=== PATIENT | male | born 1950 | race Caucasian/White ===

== ENCOUNTER 2019-06-20 06:07 | Day surgery (SDC) | payer BC ==
--- NOTE | 2019-06-17 15:34 | EKG ---
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
--- NOTE | 2019-06-17 15:50 | RAD REPORT ---
EXAM DESCRIPTION: Aicha Tavarez (2 Views)06/17/2019 3:37 pm CLINICAL HISTORY: Hypertension/preop for cardiac catheterization COMPARISON: January 2019 FINDINGS: The lungs appear clear of acute infiltrate. The heart is normal size IMPRESSION: No acute abnormalities displayed
[2019-06-17 16:33] LABS: Absolute Lymphocytes (CBC) 1.4 K/uL (0.7-4.9); Hematocrit 44.9 % (39.6-49.0); Lymphocytes % 22.1 % (15.3-44.8); RBC Red Blood Cell Count 5.04 M/uL (4.33-5.43)
[2019-06-17 16:37] LABS: Protime INR 1.03
[2019-06-17 16:44] LABS: Potassium 3.6 mmol/L (3.5-5.1)
[2019-06-20] MEDS ORDERED: HEPA 1000U/500MLS 1,000 UNIT/500 ML BAG IV ONE (06:43)
[2019-06-20] MEDS ORDERED: ATROPINE SULF 1 MG/10 ML SYR IV ONE (06:44)
[2019-06-20] MEDS ORDERED: LIDOCAINE 1% MPF 30 ML VIAL ONE (06:44)
[2019-06-20] MEDS ORDERED: NITROGLYCERIN 100 MCG/ML SYR (for cath lab use only) IV ONE (06:44)
[2019-06-20] MEDS ORDERED: FENTANYL CITR 100 MCG/2 ML ONE (06:44)
[2019-06-20] MEDS ORDERED: MIDAZOLAM HCL 2 MG/2 ML INJ ONE ×2 (06:44→07:24)
[2019-06-20] MEDS ORDERED: NITROGLYCERIN/D5W 0 MG/0 ML BTL IV ONE (06:45)
[2019-06-20] MEDS ORDERED: NA CHLORIDE 0.9% 0 ML ONE (06:45)
[2019-06-20] MEDS ORDERED: NA CHLORIDE 0.9% 500 ML ONE (06:55)
[2019-06-20 09:47] VITALS: O2SAT 98
[2019-06-20 10:02] VITALS: BP 129/74; TEMP 97.3
--- NOTE | 2019-06-20 10:29 | OP ---
Date of Procedure: 06/19/2019 Surgeon: Ifeanyi Rivas MD It Admin: Connie Espino. Admitted to my service on 06/19/2019 as an outpatient for heart catheterization. Procedures: Left heart catheterization, selective coronary arteriogram. Indication: Unstable angina, chest pain, positive stress test. Mr. Diop has been known to have coronary artery disease in the past. He was brought to the lab clerk. He was prepped and draped in the routine sterile fashion. A 6-Scottish sheath introduced in the [facility] common femoral artery. Angiography there was normal except for tortuosity. StarClose was used to close the case. 6-Scottish sheath was introduced. Following that, a Adele catheter 6-Scottish left an d right were used to selectively inject the right main and the left main. On the way to the left larry n, we had difficulty crossing the mid aorta, had to exchange the J-wire to a Wholey wire. That is al l secondary to tortuosity and severe calcification and atherosclerosis in the mid to distal aorta as well as iliac. Angiography of the left main and right main showed moderate plaquing in the distal RC A and ostium of the PDA. The LAD had a 50% proximal, 70% diagonal, about 60% to 70% distal LAD with diffuse disease, but disease below he had about a 90% OM2 stenosis. Complications: None. Blood Loss: 5 cc. Postoperative Diagnoses: [id number] coronary artery disease. I will attempt medical therapy first. If he continues to be symptomatic, I will send him for a bypass surgery although he is not a great candidate, especially on the LAD side, but I will have that discuss with him later. Anesthesia: Total conscious sedation was 30 minutes. NB/MODL Voice ID: [id number] Report ID: [id number]
== END 2019-06-20 10:08 | disposition home or self-care (01) ==
LOC: CCL 06:07
PROC: B201YZZ Plain Radiography of Multiple Coronary Arteries using Other Contrast (ICD-10-PCS; principal; 2019-06-20)
DX: I25.110 Atherosclerotic heart disease of native coronary artery with unstable angina pectoris (principal); R94.30 Abnormal result of cardiovascular function study, unspecified; I10 Essential (primary) hypertension; E78.5 Hyperlipidemia, unspecified
CPT/HCPCS: 93005; 85025; 80048; 36415; 85610; 85730; 71046; 93454; C1893; J2250 ×2; J3010; J7040; J0583